=== PATIENT | female | born 1940 | race Caucasian/White ===

== ENCOUNTER 2022-08-20 06:19 | Inpatient (IN) ==
[2022-08-20] MEDS ORDERED: CeFAZolin Syr 2,000MG/20 ML 2,000 MG/20 ML SYRINGE IVPB ONE (06:32)
[2022-08-20] MEDS ORDERED: Ropivacaine/PF 0.5% 30 ML VIAL ONE (06:39)
[2022-08-20] MEDS ORDERED: Ringers Solution, Lactated 1,000 ML IVC SCH (06:45)
[2022-08-20] MEDS ORDERED: Famotidine 20 MG/2 ML VIAL IVP ONE (06:51)
[2022-08-20] MEDS ORDERED: Acetaminophen IV 1,000 MG/100 ML BAG IVPB ONE (06:51)
[2022-08-20] MEDS ORDERED: *HR* HYDROmorphone PF 0.5 MG/0.5 ML SYRINGE IVP PRN (06:52)
[2022-08-20] MEDS ORDERED: Ondansetron 4 MG/2 ML VIAL IVP PRN ×2 (06:52→11:35)
[2022-08-20] MEDS ORDERED: *HR* OxyCODONE Immed Rel 5 MG TABLET PO PRN ×2 (06:52→11:35)
[2022-08-20] MEDS ORDERED: *HR* FentaNYL (PF) 100 MCG/2 ML VIAL IVP PRN (06:52)
[2022-08-20] MEDS ORDERED: *HR* Propofol 200 MG/20 ML VIAL IVP ONE (06:58)
[2022-08-20] MEDS ORDERED: Ondansetron 4 MG/2 ML VIAL ONE (06:59)
[2022-08-20] MEDS ORDERED: Lidocaine HCL 4 ML Topical Solution (Laryng-O-Jet Kit Sterile Pak) TP ONE (06:59)
[2022-08-20] MEDS ORDERED: *HR* Rocuronium Bromide 50 MG/5 ML VIAL ONE (06:59)
[2022-08-20] MEDS ORDERED: *HR* Succinylcholine 200 MG/10 ML VIAL IVP ONE (06:59)
[2022-08-20] MEDS ORDERED: Lidocaine -MPF 2% 2 ML VIAL ONE (06:59)
[2022-08-20] MEDS ORDERED: Vancomycin 1,000 MG VIAL ONE (07:16)
[2022-08-20] MEDS ORDERED: *HR* Vasopressin 20 UNIT/ML VIAL ONE (07:39)
[2022-08-20] MEDS ORDERED: Albumin Human 5% 0 GM/0 ML IV.SOLN ONE (07:39)
[2022-08-20] MEDS ORDERED: ROPIVACAINE INTRAART ONE (07:45)
[2022-08-20] MEDS ORDERED: KETOROLAC INTRAART ONE (07:45)
[2022-08-20] MEDS ORDERED: EPINEPHRINE INTRAART ONE (07:45)
[2022-08-20] MEDS ORDERED: Povidone-Iodine 45 ML, Sodium Chloride IRRigation 1,000 ML IR ONE (07:45)
[2022-08-20] MEDS ORDERED: [UNRECOGNIZED DRUG - OTHER] INTRAART ONE (07:45)
[2022-08-20] MEDS ORDERED: Tranexamic Acid 1,000 MG/10 ML VIAL ONE (08:05)
[2022-08-20] MEDS ORDERED: *HR* FentaNYL (PF) 100 MCG/2 ML VIAL ONE (08:13)
[2022-08-20] MEDS ORDERED: *HR* Remifentanil 1 MG VIAL IVP ONE (08:20)
[2022-08-20] MEDS ORDERED: *HR* HYDROMORPHONE 2 MG/ML VIAL ONE (09:14)
[2022-08-20] MEDS ORDERED: Sugammadex Sodium 200 MG/2 ML VIAL IV ONE (09:20)
[2022-08-20] MEDS ORDERED: EPHEDrine sulfate 50 MG/10 ML VIAL IVP ONE (09:30)
[2022-08-20] MEDS ORDERED: *HR* Promethazine 25 MG/ML VIAL IVPB ONE (10:19)
[2022-08-20] MEDS ORDERED: *HR* Promethazine 25 MG/ML VIAL ONE (10:22)
[2022-08-20] MEDS ORDERED: Scopolamine Patch 1.5 MG PATCH.TD72 TD ONE (10:46)
[2022-08-20] MEDS ORDERED: Naloxone 0.4 MG/ML INJ IVP PRN (11:35)
[2022-08-20] MEDS ORDERED: Sennosides 8.6 MG TABLET PO PRN (11:35)
[2022-08-20] MEDS ORDERED: *HR* Promethazine 25 MG/ML VIAL IM PRN (11:35)
[2022-08-20] MEDS ORDERED: MOM Conc 10 ML UD.LIQ PO PRN (11:35)
[2022-08-20] MEDS: Ringers Solution, Lactated 1,000 ML IVC SCH (12:00)
[2022-08-20] MEDS: Ascorbic Acid 500 MG TABLET PO SCH (16:58)
[2022-08-20] MEDS: CeFAZolin 2 GM/120 ML BAG IVPB SCH ×2 (16:58→23:12)
[2022-08-21 05:37] LABS: Calcium 9.3 mg/dL (8.6-10.3); Potassium 3.9 mEq/L (3.5-5.1)
[2022-08-21 06:56] VITALS: O2SAT 98
[2022-08-21 07:23] LABS: Basophils % 0.1 %; Eosinophils % 0.1 %; Hematocrit 32.2 % (35.3-44.9); Hemoglobin 10.3 g/dL (11.5-15.4); Immature Granulocytes % 0.3 % (0-4); Lymphocytes # 0.7 K/mcL (0.6-4.6); Lymphocytes % 6.5 %; Mean Corpuscular Hemoglobin 30.3 pg (28.0-33.3); Mean Corpuscular Volume 94.7 fL (83.0-100.0); Mean Platelet Volume 10.5 fL (9.4-12.4); Monocytes # 0.9 K/mcL (0.0-1.3); Monocytes % 8.7 %; Neutrophils # 8.5 K/mcL (1.6-8.9); Platelet Count 166 K/mcL (140-400); Red Cell Distribution Width 12.2 % (11.5-14.5); Segmented Neutrophils % 84.3 %; White Blood Count 10.1 K/mcL (4.3-11.1)
[2022-08-21] MEDS ORDERED: Multivit/Ca/Min/Fe/FA 1 TAB TABLET PO SCH (09:00)
[2022-08-21] MEDS ORDERED: Aspirin Enteric Coated 81 MG Tablet PO SCH (09:58)
[2022-08-21] MEDS: Ascorbic Acid 500 MG TABLET PO SCH (10:04)
[2022-08-21 11:26] VITALS: BP 130/74; PULSE 67; TEMP 98.6
[2022-08-21] MEDS: Ringers Solution, Lactated 1,000 ML IVC SCH (11:38)
== END 2022-08-21 15:19 | disposition home health service (06) | DRG 467 ==
LOC: SDCAOSI 06:19 → 4WAOSI 11:50
PROVIDERS: ADMIT Orthopaedic Surgery; ATTEND Orthopaedic Surgery